=== PATIENT | male | born 1965 | race American Indian/Alaskan Native ===

== ENCOUNTER 2016-07-22 05:57 | Day surgery (SDC) | payer BC, OTHER ==
[2016-07-22] MEDS ORDERED: NACL 0.9% 1000 ML 1,000 ML IV SCH (07:00)
[2016-07-22] MEDS ORDERED: PEPCID PO NR (07:00)
[2016-07-22] MEDS ORDERED: VERSED IV NR (07:00)
[2016-07-22] MEDS ORDERED: DILAUDID IV PRN (07:02)
[2016-07-22] MEDS ORDERED: ZOFRAN IV PRN (07:02)
--- NOTE | 2016-07-22 07:03 | Anesthesia Day of Surgery ---
Anesthesia Day of Surgery - Day of Surgery Patient Examined: Yes Patient H&P Reviewed: Yes Patient is NPO: Yes Beta Blockers: No Cardiac Clearance: No Pulmonary Clearance: No
--- NOTE | 2016-07-22 07:04 | Anesthesia Consultation ---
Anesthesia Consult and Med Hx Date of service: 07/22/16 - Airway Anesthetic Teeth Evaluation: Poor (broken upper teeth with only small amount of tooth left-risks explained) - Pulmonary Exam CTA: Yes (blbs clear) - Cardiac Exam Cardiac Exam: RRR - Pre-Operative Health Status ASA Pre-Surgery Classification: ASA3 Proposed Anesthetic Plan: General - Pulmonary Hx Smoking: No Hx Asthma: Yes ( A CHILD) Hx Sleep Apnea: No - Central Nervous System Hx Psychiatric Problems: No - Endocrine Hx Insulin Dependent Diabetes: Yes - Other Systems Hx Cancer: No
[2016-07-22] MEDS ORDERED: DIPRIVAN 10 MG/ML IV ONE ×3 (07:30→09:27)
[2016-07-22] MEDS ORDERED: DILAUDID ONE ×2 (07:31→09:01)
[2016-07-22] MEDS ORDERED: MARCAINE 0.5% 30 ML INFILTRATI ONE (07:47)
[2016-07-22] MEDS ORDERED: MARCAINE-EPI 0.25%-1:200,000 INFILTRATI ONE (07:47)
[2016-07-22] MEDS ORDERED: ANCEF/STERILE WATER 2 GM/20 ML IV NR (08:00)
[2016-07-22] MEDS ORDERED: MARCAINE-EPI 0.5%-1:200,000 INFILTRATI ONE ×2 (08:16→08:54)
[2016-07-22] MEDS ORDERED: NACL 0.9% IR ONE (08:54)
[2016-07-22] MEDS ORDERED: ZOFRAN ONE ×2 (09:04)
[2016-07-22] MEDS ORDERED: XYLOCAINE MPF 2% ONE (09:04)
[2016-07-22] MEDS ORDERED: ZEMURON IV ONE ×2 (09:04→09:07)
[2016-07-22] MEDS ORDERED: NACL 0.9% 1000 ML 1,000 ML ONE (09:11)
[2016-07-22] MEDS ORDERED: ROBINUL ONE ×2 (09:44)
[2016-07-22] MEDS ORDERED: NEOSTIGMINE ONE (09:45)
--- NOTE | 2016-07-22 09:59 | Discharge Summary ---
Short Stay Discharge Plan Activity: advance as tolerated Diet: regular Wound: open to air Follow up with: KAT AVILA MD [Primary Care Provider] - 7 Days UVALDO MENDES MD [Staff Physician] - 7 Days Prescriptions: HYDROcodone/APAP 5-325 [[place] 5/325] 1 each PO Q4HR PRN #40 tablet PRN Reason: Pain Prochlorperazine [Compazine] 10 mg PO Q6HR #30 tablet
--- NOTE | 2016-07-22 10:13 | Operative Report ---
Operative Report Operative Report: Date of operation: 07/22/2016. Preoperative diagnosis: Bilateral inguinal hernia. Postoperative diagnosis: Bilateral inguinal hernia. Operation: Laparoscopic bilateral inguinal herniorrhaphy. Surgeon: Ken Mcnair M.D. Asst.: Jose Mora M.D. Findings: 51 years old male with very symptomatic and painful bilateral inguinal hernia. At operation we found bilateral direct inguinal hernia. Procedure: Under general anesthesia the patient had a Rajput catheter put in place and both arms were tucked. The abdomen was prepped and draped in the usual sterile manner. After proper timeout Marcaine 0.5% was injected about 1 fingerbreadth below the umbilicus. A 2 cm transverse incision was then done with a #11 blade. Dissection was carried down to the fascia which was opened in a transverse fashion extending toward the left side to identify the medial edge of the left rectus muscle. Dissection was done between the muscle and the posterior teeth with this retractor and a Divya clamp. Then a kidney shaped dissector was put in the space between the rectus sheath and the rectus muscle and inflated with air. After this was done a balloon Ramirez Cannula Was put in Place and the Balloon Inflated with 30 ML's of Air. Then a 10 Mm Telescope Was Passed in the Preperitoneal Space. Another 5 Mm Port Is Inserted about 2 Fingerbreadth below the first incision. Then under direct vision a 5 mm port was put in the right lower quadrant. Then dissection in the left inguinal area was performed using a [place] dissector and a dolphin dissector. Jacobo's ligament and the left side was identified and scored with the cautery. Then the iliopectineal line was identified lateral to the cord elements in the area was dissected. Then the hernia sac was identified in the direct position and the preperitoneal fat was dissected away from the sac. It was a fairly large defect. Then freed the preshaped mesh for the left side was passed through the 10 mm port. It was spread over the defect and tacked to the Jacobo's ligament and today rectus muscle and the above the iliopectineal line. A nice repair was obtained in this fashion. After that was done and the 5 mm port in the right lower quadrant was removed and a 5 mm port was put in the left lower quadrant under direct vision. The dissection for the right sided hernia was done in the same fashion. 3 the mesh preshaped medium size for the right side was put in place in the same fashion also. After the preperitoneal space was emptied of carbon dioxide. The Ramirez cannula was removed and the 5 mm ports were all removed. The fascia of the 10 mm cannula was closed with a figure-of- eight stitch of 0 Vicryl. The wounds were irrigated with normal saline solution. The skin able approximate it with intercuticular suture of 4-0 Monocryl. The wounds were dressed with Dermaflex. The Rajput catheter was removed, the patient was awakened, extubated and transferred to the recovery room in good condition. Estimated blood loss: Negligible. Intraoperative fluid replacement: Crystalloids. Condition: Stable. Complications: None.
[2016-07-22] MEDS ORDERED: NARCAN 0.4 MG/1 ML ONE (10:21)
[2016-07-22] MEDS: SUBLIMAZE IV PRN ×2 (10:30→10:40)
--- NOTE | 2016-07-22 11:09 | Post Anesthesia Evaluation ---
- Post Anesthesia Evaluation Patient Participated: Yes Airway Patent: Yes Stable Respiratory Function: Yes Nausea/Vomiting: No Temp > 96.8F: Yes Pain Manageable: Yes Adequeate Hydration: Yes Anesthesia Complications: No Block Receding Appropriately: Not Applicable Patient on Ventilator: No
[2016-07-22] MEDS ORDERED: NORCO 5/325 PO PRN (12:20)
[2016-07-22 14:31] VITALS: BP 140/98
== END 2016-07-22 13:00 | disposition home or self-care (01) ==
LOC: OR 05:57
PROVIDERS: ATTEND Specialist
DX: K40.20 Bilateral inguinal hernia, without obstruction or gangrene, not specified as recurrent (principal); J45.909 Unspecified asthma, uncomplicated; E11.9 Type 2 diabetes mellitus without complications; Z79.4 Long term (current) use of insulin; Z83.511 Family history of glaucoma; Z80.9 Family history of malignant neoplasm, unspecified
CPT/HCPCS: 49650; 82962; C1726; C1781; J0690; J1170; J2250; J2310; J2405; J2704; J2710; J3010; J7030; J1815

== ENCOUNTER 2017-01-06 11:25 | Outpatient (CLI) | payer BC | END 2017-01-06 11:26 | disposition home or self-care (01) | LOC: VAS 11:25 | PROVIDERS: ATTEND Family Medicine | DX: M79.605 Pain in left leg (principal); M79.89 Other specified soft tissue disorders ==

== ENCOUNTER 2017-05-05 11:47 | Emergency (ER) | payer SELFPAY ==
[2017-05-05 14:16] VITALS: BP 147/93
[2017-05-05 14:48] LABS: Basophils # (Auto) 0.1 K/mm3 (0.0-0.1); Basophils % (Auto) 0.8 % (0.0-1.8); Eosinophils # (Auto) 0.2 K/mm3 (0.0-0.4); Eosinophils % (Auto) 2.8 % (0.0-4.3); Hematocrit 45.7 % (35.5-45.6); Lymphocytes # (Auto) 3.2 K/mm3 (1.2-5.4); Lymphocytes % (Auto) 50.2 % (13.4-35.0); Mean Corpuscular HGB Conc 33 % (32-34); Mean Corpuscular Hemoglobin 28 pg (28-32); Mean Corpuscular Volume 86 fl (84-94); Monocytes # (Auto) 0.6 K/mm3 (0.0-0.8); Monocytes % (Auto) 9.2 % (0.0-7.3); Platelet Count 282 K/mm3 (140-440); Red Blood Count 5.33 M/mm3 (3.65-5.03); Red Cell Distribution Width 13.8 % (13.2-15.2)
[2017-05-05 14:57] LABS: BUN/Creatinine Ratio 8; Blood Urea Nitrogen 7 mg/dL (9-20); Calcium 9.1 mg/dL (8.4-10.2); Hemolysis Index 24
== END 2017-05-05 23:15 | disposition left against medical advice (07) ==
LOC: ED 11:47
DX: R20.0 Anesthesia of skin (principal); Z53.21 Procedure and treatment not carried out due to patient leaving prior to being seen by health care provider
CPT/HCPCS: 36415; 80048; 85025